=== PATIENT | female | born 1960 | race Caucasian/White ===

== ENCOUNTER 2024-03-05 07:45 | Day surgery (SDC) | payer MEDICARE, MEDICAID ==
[2024-03-04 14:02] LABS: BASOPHILS % (AUTO) 0.6 % (0-1); EOSINOPHILS # (AUTO) 0.3 X10'3 (0-0.9); EOSINOPHILS % (AUTO) 3.6 % (0-6); LYMPHOCYTES # (AUTO) 2.3 X10'3 (1.1-4.8); LYMPHOCYTES % (AUTO) 31.7 % (21-51); MEAN CORPUSCULAR HEMOGLOBIN 28.5 PG (27.0-31.0); MEAN CORPUSCULAR HGB CONC 32.8 g/dL (33.0-36.5); MEAN PLATELET VOLUME 6.9 FL (7.4-10.4); MONOCYTES # (AUTO) 0.7 X10'3 (0-0.9); MONOCYTES % (AUTO) 8.9 % (2-12); NEUTROPHILS # (AUTO) 4.1 X10'3 (1.8-7.7); NEUTROPHILS % (AUTO) 55.2 % (42-75); PRE OP HEMATOCRIT 42.6 % (35.0-45.0); PRE OP PLATELET COUNT 264 X10'3 (140-440); PRE OP WHITE BLOOD COUNT 7.4 10'3 (4.8-10.8); RED CELL DISTRIBUTION WIDTH 14.9 % (11.5-14.5)
[2024-03-04 14:10] LABS: ALBUMIN 3.7 G/DL (3.4-5.0); ALBUMIN/GLOBULIN RATIO 0.9 (1.1-1.5); ALKALINE PHOSPHATASE 108 IU/L (46-116); BLOOD UREA NITROGEN 22 MG/DL (7-18); BUN/CREATININE RATIO 31.4 (10.0-20.0); CALCIUM 9.3 MG/DL (8.5-10.1); CHLORIDE 102 MMOL/L (99-107); PRE OP ALT 30 U/L (30-65); PRE OP ANION GAP 6 (8-16); PRE OP AST 19 U/L (10-37); PRE OP BILIRUB, TOTAL 0.3 MG/DL (0.0-1.0); PRE OP GLUCOSE 100 MG/DL (70-104); PRE OP POTASSIUM 4.2 MMOL/L (3.4-5.1); PRE OP SODIUM 138 MMOL/L (135-145); TOTAL CARBON DIOXIDE 30.4 MMOL/L (24-32); TOTAL PROTEIN 7.6 G/DL (6.4-8.2); eGFR 84 ML/MIN
[~2024-03-05] VITALS: Ht 167.6 cm; Wt 72.6 kg
[~2024-03-05 07:45] MED LIST: NO HOME MEDS
[2024-03-05 08:10] VITALS: BP 132/85; PULSE 75; RESP 16; TEMP 97.4; O2SAT 96
[2024-03-05] MEDS ORDERED: morphine 4 MG/ML inj SYRINge IV PRN (09:20)
[2024-03-05] MEDS ORDERED: ondansetron/PF 4mg/2ml inj IV PRN (09:20)
[2024-03-05] MEDS ORDERED: labetalol 20mg/4ml (5mg/ml) syringe IV PRN (09:20)
[2024-03-05] MEDS ORDERED: morphine 2 MG/ML inj. syringe IV PRN (09:20)
[2024-03-05] MEDS: famotidine 20mg tablet PO ONE (09:58)
[2024-03-05] MEDS: ringers solution, lacted 1,000 ML IV SCH ×2 (09:59→11:00)
[2024-03-05] MEDS: clindamycin 600mg/D5W 50ml 50 ML IV ONE (09:59)
[2024-03-05] MEDS ORDERED: fentaNYL/PF 50MCG/1 ML 2ML syringe ONE (10:17)
[2024-03-05] MEDS ORDERED: MIDAZolam 1 MG/ML 5ML VIAL ONE (10:17)
[2024-03-05] MEDS ORDERED: BUPIVAcaine/PF 2.5mg/ml (0.25%) 10ml vial ONE (10:30)
[2024-03-05] MEDS ORDERED: LIDOcaine 2% (20mg/ml) 5ml vial ONE (10:30)
[2024-03-05] MEDS: LIDOcaine 2% (20mg/ml) 5ml vial SQ ONE (10:35)
[2024-03-05 11:00] VITALS: BP 126/75; PULSE 77; RESP 16; O2SAT 90
[2024-03-05 11:10] VITALS: BP_SYST 100; PULSE 72; RESP 11; O2SAT 95
[2024-03-05 11:20] VITALS: BP 111/75; PULSE 71; RESP 10; O2SAT 95
[2024-03-05 11:30] VITALS: BP 122/80; PULSE 75; RESP 21; O2SAT 92
== END 2024-03-05 12:20 | disposition home or self-care (01) ==
LOC: PAS 07:45
PROVIDERS: ATTEND Orthopaedic Surgery Hand Surgery
DX: S63.641A Sprain of metacarpophalangeal joint of right thumb, initial encounter (principal); E66.9 Obesity, unspecified; J45.909 Unspecified asthma, uncomplicated; M81.0 Age-related osteoporosis without current pathological fracture; G47.30 Sleep apnea, unspecified; I25.2 Old myocardial infarction; Z86.73 Personal history of transient ischemic attack (TIA), and cerebral infarction without residual deficits; Z90.49 Acquired absence of other specified parts of digestive tract; Z98.890 Other specified postprocedural states; Z68.25 Body mass index [BMI] 25.0-25.9, adult; Z88.0 Allergy status to penicillin; Z88.2 Allergy status to sulfonamides; Z88.8 Allergy status to other drugs, medicaments and biological substances; X58.XXXA Exposure to other specified factors, initial encounter; Y93.89 Activity, other specified; Y92.89 Other specified places as the place of occurrence of the external cause; Y99.8 Other external cause status
CPT/HCPCS: 36415; 80053; 82948; 85025; A4215; A4618; A6449; A7000; C1713; J2250; J3010; J3490; J7120

== ENCOUNTER 2025-03-24 12:27 | Outpatient (CLI) | payer MEDICARE, MEDICAID ==
--- NOTE | 2025-03-24 16:06 | RADIOLOGY REPORT ---
EXAM: ESOPHAGRAM HISTORY: Evaluate for hiatal hernia FLUORO TIME: 1.0 minutes. AIR KERMA: 33.54 mGy TECHNIQUE: The patient was positioned prone and upright at the fluoroscopy unit and instructed to swallow both thick and thin barium contrast material under fluoroscopic examination. FINDINGS: Normal swallow reflex. No aspiration. There is normal esophageal distensibility without evidence of stricture and without abnormal tertiary contractions. No mucosal ulcerations seen throughout the esophagus. There is a small to moderate size reducible axial hiatal hernia. Contrast proceeded appropriately through the gastric lumen without restriction. No gastroesophageal reflux was noted while the patient was in upright position. Gastric mucosal pattern and duodenal mucosal pattern appear unremarkable. IMPRESSION: 1. Small to moderate reducible axial hiatal hernia with no evidence of gastroesophageal reflux.
== END 2025-03-24 23:59 | disposition home or self-care (01) ==
LOC: RAD 12:27
PROVIDERS: ATTEND Radiology Diagnostic Radiology
DX: K44.9 Diaphragmatic hernia without obstruction or gangrene (principal)
CPT/HCPCS: 74220

== ENCOUNTER 2025-03-29 06:23 | Observation (INO) | payer MEDICARE, MEDICAID ==
--- NOTE | 2025-03-22 11:18 | ELECTROCARDIOGRAPH REPORT ---
[facility] Test Date: 2025-03-22 Test Time: 11:15:57 Pat Name: SHAISTA BERTRAND Department: [facility]-PRE-OP Patient ID: [facility]-[id number] Room: Gender: F Pharmaceutical Representative: BRENDEN : 1960 Requested By: MICHELE MCKAY Order Number: [id number] Reading MD: Dr. OLIVIA Donato Measurements Intervals Castell Rate: 80 P: 68 NM: 150 QRS: -11 QRSD: 91 T: 52 QT: 382 QTc: 441 Interpretive Statements Sinus rhythm Electronically Signed On 03-23-2025 19:47:[address] OLIVIA Donato Please click the below link to view image of tracing.
[2025-03-22 12:03] LABS: MEAN PLATELET VOLUME 6.7 FL (7.4-10.4); PRE OP HEMATOCRIT 43.6 % (35.0-45.0); PRE OP HEMOGLOBIN 14.2 g/dL (12.0-16.0); PRE OP PLATELET COUNT 297 X10'3 (140-440); PRE OP WHITE BLOOD COUNT 8.4 10'3 (4.8-10.8); RED CELL DISTRIBUTION WIDTH 15.2 % (11.5-14.5)
[2025-03-22 12:16] LABS: CREATININE 0.81 MG/DL (0.40-0.90); PRE OP ALT 27 U/L (30-65); PRE OP ANION GAP 7 (8-16); PRE OP BILIRUB, TOTAL 0.3 MG/DL (0.0-1.0); PRE OP GLUCOSE 98 MG/DL (70-104); PRE OP POTASSIUM 4.5 MMOL/L (3.4-5.1); PRE OP SODIUM 141 MMOL/L (135-145); TOTAL CARBON DIOXIDE 30.7 MMOL/L (24-32); eGFR 71 ML/MIN
[2025-03-22 12:17] LABS: PRE OP AST 20 U/L (10-37)
[2025-03-28 18:00] VITALS: BP 123/79; PULSE 91; RESP 16; TEMP 97; O2SAT 96
[~2025-03-29] VITALS: Ht 167.6 cm; Wt 72.6 kg
[2025-03-29] VITALS (34 sets, daily range): BP systolic 119–170; BP diastolic 75–110; PULSE 89–112; RESP 9–20; TEMP 97–98.1; O2SAT 89–98
[2025-03-29] MEDS: ringers solution, lacted 1,000 ML IV SCH ×2 (05:30→11:50)
[2025-03-29] MEDS: clindamycin-Cleocin 900mg/D5W 50 ML IV ONE (05:30)
[2025-03-29] MEDS ORDERED: LIDOcaine 1% 30ml preserv. free vial ONE (06:51)
[2025-03-29] MEDS ORDERED: BUPIVAcaine 2.5mg/ml inj 50ml vial (contains preservative) ONE (06:51)
[2025-03-29] MEDS ORDERED: hydrALAZINE 20mg/ml inj. IV PRN (08:25)
[2025-03-29] MEDS ORDERED: labetalol 20mg/4ml (5mg/ml) syringe IV PRN (08:25)
[2025-03-29] MEDS ORDERED: HYDROmorphone/PF 0.2 MG/ML SYRINGE IV PRN (08:25)
[2025-03-29] MEDS ORDERED: propofol inj 20 ML IV ONE ×2 (10:32)
[2025-03-29] MEDS ORDERED: 0.9 % SODIUM CHLORIDE 10 ML VIAL ONE (10:32)
[2025-03-29] MEDS ORDERED: fentaNYL/PF 50MCG/1 ML 2ML syringe ONE (10:32)
[2025-03-29] MEDS ORDERED: dexamethasone sod phosphate 4mg/ml inj. ONE (10:32)
[2025-03-29] MEDS ORDERED: rocuronium 10mg/ml inj IV ONE ×2 (10:33→10:51)
[2025-03-29] MEDS ORDERED: LIDOcaine 2% (20mg/ml) 5ml vial ONE (10:33)
[2025-03-29] MEDS ORDERED: phenylephrine 10mg/ml inj. ONE (10:33)
[2025-03-29] MEDS ORDERED: ePHEDrine 50MG/ML INJ. ONE (10:33)
[2025-03-29] MEDS ORDERED: glycopyrrolate 0.2mg/ml inj ONE (11:18)
[2025-03-29] MEDS: normal saline 1000ml 1,000 ML IV SCH (11:35)
[2025-03-29] MEDS: potassium CL 20mEq in D5-1/2NS 1,000 ML IV SCH (11:35)
[2025-03-29] MEDS: acetaminophen 1,000mg/100ml IV 100 ML IV PRN (11:48)
--- NOTE | 2025-03-29 11:51 | OPERATIVE REPORT ---
Operative Report Providers to CC CC: PIYUSH MCKAY MD ~ Date of Procedure: Mar 29, 2025 Pre-Operative Diagnosis: paraesophageal hernia Post-Operative Diagnosis Type 1 paraesophageal (sliding hiatal) hernia Procedure Performed Robotic assisted, laparoscopic paraesophageal hernia repair with mesh Surgeon: Piyush Mckay MD FACS Supervisor [employer] None Anesthesiologist: Marta Luna Type of Anesthesia: General Findings: Type 1 paraesophageal hernia Wound class I Complications None Prosthetics\Implants used: Phasix mesh Estimated Blood Loss: About 10 cc Specimen Removed: GE fat pad excised and discarded Description of Procedure: Patient was brought to the operating room and identified by the nursing staff and the attending physician. Patient was placed supine and general anesthesia was induced. Preoperative antibiotics were given. Glasgow catheter was placed. The abdomen was prepped and draped in the standard sterile fashion. At Saunders's point, Veress needle technique was used through a stab incision to access and insufflate the abdomen. This was accomplished without incident. An optical, 12 mm trocar was used to gain access to the abdomen in the left upper quadrant under laparoscopic visualization. Additional 8.5 mm robotic trochars were placed under laparoscopic visualization in the left lateral upper abdomen, left epigastrium and right upper quadrant. Patient was placed in steep, reverse Trendelenburg position. The [place] robotic arm was docked to the patient and instruments guided into the abdomen under laparoscopic visualization. There were fairly significant adhesions between omentum and the anterior abdominal wall. First 10 minutes was spent taking down these adhesions, allowing for complete visualization of the upper abdomen. The left lobe of the liver was lifted and the hiatus inspected. Fairly small hiatal defect was noted. Just the GE junction was slid above the hiatus consistent with type 1 paraesophageal hernia. An 18 inch, 0, V-Loc suture was used to sling the left lobe of the liver up to the anterior abdominal wall. With the stomach retracted towards the patient's left upper quadrant, dissection was initiated along the pars flaccida and the lesser sac was entered. The lesser omentum was divided up to the right monica. There was not a replaced left hepatic artery. Dissection was carried in to the mediastinum. The mediastinal space was entered. Dissection was then carried posteriorly along the right monica, taking care to leave peritoneum overlying the muscles. Once the posterior decussation was encountered, attention was then turned to the short gastric vessels. Stomach was retracted toward the patient's right and the short gastric vessels were placed on tension. The short gastric vessels were divided along the upper portion of the greater curvature, up to the phrenoesophageal ligament which was also then divided. The peritoneal reflection of the left monica was opened and dissection carried up until the apex of the crura was reached. Dissection was carried up into the mediastinum, mobilizing the esophagus from the retrocardiac space and taking care not to injure the bilateral pleura. The entire hernia sac which was very small in size, was mobilized out of the mediastinum and reduced into the abdomen. Excess sac was dissected at the level of the gastroesophageal fat pad and set aside. The retroesophageal space was developed. The GE junction was retracted anteriorly and the mediastinal dissection was carried out posterior to the esophagus. Dissection continued until at least 3 cm of intra-abdominal esophagus was obtained without any retraction on the stomach. With the stomach retracted anteriorly, adequate space and visualization was obtained to allow for the crural repair. Strips of bioabsorbable, Phasix mesh were used to reinforce the crural repair. A strip of mesh was placed over each crura and used for reapproximation without tension. Attention was then turned to the gastropexy. Fundus was anchored to the upper left portion of the hiatus with full-thickness crural sutures. The long absorbable suture was then run along the greater curvature creating a gastropexy to the anterior abdominal wall. Care was taken to stay medial to the phrenic nerve and vascular bundle. About a fourth of the gastric fundus was anchored to the anterior abdominal wall. Attention was then turned to the modified Hill procedure/augmentation stitch. The angle of His was then recreated with a running, 2/0, long-absorbable, V-Loc suture. This was run between the fundus and the lateral border of the intra-abdominal esophagus. This suture was run up to the level of the left monica. Gastropexy was then completed by running the midportion of the gastric fundus towards the initial gastropexy suture and anchoring the 2 together. [place] and sutures were retrieved. The [place] robotic arm was undocked from the patient. The 12 mm port was removed and the fascial defect closed percutaneously with 0 Vicryl suture. Remaining ports were removed and the abdomen was allowed to deflate. Skin was closed at all sites with 4-0 Monocryl sutures and dressed with Dermabond. Patient was extubated and transferred to the postanesthesia care unit in stable condition. Counts repoted as correct: Yes PIYUSH MCKAY MD Mar 29, 2025 11:51
[2025-03-29] MEDS: morphine 4 MG/ML inj SYRINge IV PRN (12:22)
[2025-03-29] MEDS: proMETHazine 25mg rectal suppository RC ONE (12:54)
[2025-03-29] MEDS: HYDROmorphone/PF 0.2 MG/ML SYRINGE IV PRN (13:00)
--- NOTE | 2025-03-29 13:54 | RADIOLOGY REPORT ---
CHEST RADIOGRAPH Indication: POST-OP Technique: Single frontal view of the chest was obtained Comparison: None FINDINGS: Lines and Tubes: None Lungs: No focal consolidation. Pleura: No effusion. No pneumothorax. Cardiomediastinal contours: Unremarkable Bones: No acute osseous abnormality. IMPRESSION: No acute cardiopulmonary disease. Subcutaneous emphysema in the left neck, which could represent postoperative changes
[2025-03-29] MEDS: HYDROmorph/NS 0.2 mg/ml PCA 100 ML IV SCH (14:12)
[2025-03-29] MEDS: LidoCAINE 2% Topical Jelly 11mL syringe (UROJET) TOP ONE (17:30)
[2025-03-29] MEDS: heparin, porcine 5000 units/ml vial SQ SCH (20:09)
[2025-03-29] MEDS: docusate sod 100mg capsule PO SCH (20:09)
[2025-03-30 06:00] VITALS: BP 127/77; PULSE 108; RESP 16; TEMP 98.2; O2SAT 95
[2025-03-30 07:16] VITALS: RESP 18; O2SAT 98
[2025-03-30] MEDS: oxyCODONE/APAP 5-325mg tablet PO ONE (09:40)
[2025-03-30] MEDS: PCA WASTE DOCUMENTATION 1 MG ML MC SCH (10:42)
[2025-03-30 11:30] VITALS: BP 140/77; PULSE 89; RESP 16; TEMP 97.6; O2SAT 96
[2025-03-30 18:00] VITALS: BP 162/99; PULSE 113; RESP 17; TEMP 97.6; O2SAT 93
[2025-03-30] MEDS: proMETHazine 25mg rectal suppository RC ONE (18:45)
[2025-03-30] MEDS: magnesium hydroxide 30ml (MOM) UD suspension PO ONE (19:00)
[2025-03-30] MEDS: oxyCODONE/APAP 5-325mg tablet PO PRN (19:28)
[2025-03-30 20:00] VITALS: RESP 18; O2SAT 92
--- NOTE | 2025-03-30 20:33 | PROGRESS NOTE ---
Progress Note Dictate Providers to CC ~ Progress Note: Subsequent surgical care on a 64-year-old woman who is postoperative day 1, status post robotic assisted, laparoscopic paraesophageal hernia repair with mesh Some transient dysphagia today Patient has a history of neurogenic bladder and had issues with emptying her bladder and Glasgow catheter was placed She states she can only pass urine if she has a bowel movement and has requested milk of magnesia She also has some transient nausea today Swallowing seems to be improving Anticipate discharge home tomorrow Antibiotic Ordered?: No Objective Vitals Vital Signs Date Time Temp Pulse Resp B/P (MAP) Pulse Ox O2 Delivery O2 Flow Rate FiO2 03/30/25 19:28 16 03/30/25 11:30 97.6 89 140/77 (98) 96 Room Air 03/30/25 07:16 1.0 MICHELE MCKAY MD Mar 30, 2025 20:33
[2025-03-30 22:00] VITALS: BP 152/83; PULSE 99; RESP 18; TEMP 98.9; O2SAT 94
[2025-03-31 06:55] VITALS: BP 160/90; PULSE 100; RESP 14; TEMP 98.5; O2SAT 92
[2025-03-31 08:00] VITALS: RESP 14; O2SAT 92
[2025-03-31 11:21] VITALS: BP 135/91; PULSE 92; RESP 14; TEMP 98.8; O2SAT 98
[2025-03-31 13:10] VITALS: RESP 18
[2025-03-31] MEDS ORDERED: PER5325T PO (15:09)
--- NOTE | 2025-03-31 15:14 | DISCHARGE SUMMARY ---
Discharge Summary Providers to CC CC: PIYUSH MCKAY MD ~ Discharge Summary Admission Diagnosis: paraesophageal hernia Hospital Course DATE OF ADMISSION: March 29, 2025 DATE OF DISCHARGE: March 31, 2025 Discharge Diagnosis\Comment: Paraesophageal hernia Neurogenic bladder Operations\Procedures: Robotic assisted, laparoscopic paraesophageal hernia repair with mesh Consultants: Piyush Mckay MD FACS Complications: None Condition on DC: Stable New Medications: Oxycodone Hcl/Acetaminophen 5/325 MG* (Percocet 5/325 MG*) 5 Mg/325 Mg Tablet 1 TAB PO Q4H PRN for moderate or severe pain 4-10 for 5 Days, #30 TAB Continued Medications: Home Med List (No Home Medications) Each Discharge Summary: Patient was admitted for routine postoperative monitoring and pain control following robotic assisted, laparoscopic paraesophageal hernia. Patient has a history of neurogenic bladder and required catheterization. She has required self catheterization at home in the past following spinal cord injury. Ulti mately, she was able to void and tolerated a full liquid diet. This required an extra day of hospital observation. When she was discharged home, she was tolerating full liquid diet and pain was adequately controlled with oral pain medication. *Problems/Diagnosis: (1) Neurogenic bladder (2) Paraesophageal hernia Total Time Spent on D/C: Up to 30 Minutes PIYUSH MCKAY MD Mar 31, 2025 15:14
== END 2025-03-31 16:57 | disposition home or self-care (01) ==
LOC: PAS 06:23 → EDSTATUS 08:45 → SUR 3N 11:38
PROVIDERS: ADMIT Surgery; ATTEND Surgery
DX: K44.9 Diaphragmatic hernia without obstruction or gangrene (principal); N31.9 Neuromuscular dysfunction of bladder, unspecified; K66.0 Peritoneal adhesions (postprocedural) (postinfection); Z79.899 Other long term (current) drug therapy; Z98.890 Other specified postprocedural states
CPT/HCPCS: 43282; 80053; 82948; 93005; 96365; 96375; A4615; A4618; C1781; G0378; J1171; J2371; J2710; J3480; J3490; J7120; 36415; 71045; 85025; 87081; A4314; A6258; J0131; J1100; J1644; J2003; J2270; J2704; J3010; J7030